=== PATIENT | male | born 1970 | race Hispanic/Latino ===

== ENCOUNTER 2021-09-18 07:00 | Emergency (ER) | payer OTHER ==
[2021-09-18 08:23] LABS: SARS-COV-2 RT PCR POSITIVE (NEGATIVE)
--- NOTE | 2021-09-18 08:27 | ER ---
Nurse's Notes [facility] Name: Boni Callejas Age: 50 yrs Sex: Male : 1970 Arrival Date: 09/18/2021 Time: 07:04 Bed Waiting Private MD: Diagnosis: Coronavirus infection, unspecified Presentation: 09/18 07:18 Chief complaint: Patient states: PT reports bodyaches, cough, fever, headache that bb started 2 days ago. [employer] work sent him to get a covid test. Coronavirus screen: Vaccine status: Patient reports being unvaccinated. cough unrelated to allergies, fever, muscle pain. Ebola Screen: Patient negative for fever greater than or equal to 101.5 degrees Fahrenheit, and additional compatible Ebola Virus Disease symptoms Patient denies exposure to infectious person. Patient denies travel to an Ebola-affected area in the 21 days before illness onset. No symptoms or risks identified at this time. Initial Sepsis Screen: Does the patient meet any 2 criteria? No. Patient's initial sepsis screen is negative. Does the patient have a suspected source of infection? No. Patient's initial sepsis screen is negative. Risk Assessment: Do you want to hurt yourself or someone else? Patient reports no desire to harm self or others. Onset of symptoms was September 16, 2021. 07:18 Method Of Arrival: Ambulatory bb 07:18 Acuity: SOO 4 bb Historical: - Allergies: 07:20 No Known Allergies; bb - Home Meds: 07:20 None [Active]; bb - PMHx: 07:20 None; bb - PSHx: 07:20 back surgery; bb - Immunization history:: Adult Immunizations not up to date, Client reports having NOT received the Covid vaccine. - Social history:: Smoking status: Patient denies any tobacco usage or history of. Vital Signs: 07:18 BP 128 / 86; Pulse 72; Resp 20; Temp 98.3; Pulse Ox 100% ; Weight 76.2 kg; Height 5 ft. bb 7 in. (170.18 cm); Pain 6/10; 07:18 Body Mass Index 26.31 (76.20 kg, 170.18 cm) bb ED Course: 07:04 Patient arrived in ED. as 07:07 Yeimi Prince FNP-C [facility]. kb 07:08 Vijay Rocha MD is Attending Physician. kb 07:20 Triage completed. bb 07:38 Hilary Mcallister, RN is Primary Nurse. iw Administered Medications: No medications were administered Outcome: 08:26 Discharge ordered by . kb 08:38 Patient left the ED. iw Signatures: Yeimi Prince, DIGITAL CONTENT SPECIALIST-C DIGITAL CONTENT SPECIALIST-Desiree Neves Brenda RN RN bb Hilary Mcallister, RN RN iw
--- NOTE | 2021-09-18 08:27 | EDPHYS ---
Physician Documentation [facility] Name: Boni Callejas Age: 50 yrs Sex: Male : 1970 Arrival Date: 09/18/2021 Time: 07:04 Bed Waiting Private MD: ED Physician Vijay Rocha HPI: 09/18 07:22 This 50 yrs old Male presents to ER via Ambulatory with complaints of Fever, kb body aches. 07:22 The patient or guardian reports cough, that is intermittent, flu symptoms, low-grade kb fever, myalgias. Onset: The symptoms/episode began/occurred 2 day(s) ago. Severity of symptoms: At their worst the symptoms were moderate, in the emergency department the symptoms have improved. Modifying factors: The symptoms are alleviated by nothing, the symptoms are aggravated by nothing. Associated signs and symptoms: Pertinent positives: fever, Pertinent negatives: chest pain, diarrhea, ear ache, nausea, rhinorrhea, sore throat, vomiting. The patient has not experienced similar symptoms in the past. The patient has not recently seen a physician. Historical: - Allergies: 07:20 No Known Allergies; bb - Home Meds: 07:20 None [Active]; bb - PMHx: 07:20 None; bb - PSHx: 07:20 back surgery; bb - Immunization history:: Adult Immunizations not up to date, Client reports having NOT received the Covid vaccine. - Social history:: Smoking status: Patient denies any tobacco usage or history of. ROS: 07:22 Abdomen/GI: Negative for abdominal pain, nausea, vomiting, diarrhea, and constipation. kb 07:22 Constitutional: Positive for body aches, chills, fatigue, fever, malaise. 07:22 Respiratory: Positive for cough, Negative for dyspnea on exertion, hemoptysis, orthopnea, pleurisy, shortness of breath, sputum production, wheezing. 07:22 Neuro: Positive for headache. 07:22 All other systems are negative. Exam: 07:22 Constitutional: This is a well developed, well nourished patient who is awake, alert, kb and in no acute distress. Head/Face: Normocephalic, atraumatic. ENT: Moist Mucous membranes Cardiovascular: Regular rate and rhythm with a normal S1 and S2. No gallops, murmurs, or rubs. No pulse deficits. Respiratory: Respirations even and unlabored. No increased work of breathing. Talking in full sentences Skin: Warm, dry with normal turgor. Normal color. MS/ Extremity: Pulses equal, no cyanosis. Neurovascular intact. Full, normal range of motion. Neuro: Awake and alert, GCS 15, oriented to person, place, time, and situation. Moves all extremities. Normal gait. Psych: Awake, alert, with orientation to person, place and time. Behavior, mood, and affect are within normal limits. Vital Signs: 07:18 BP 128 / 86; Pulse 72; Resp 20; Temp 98.3; Pulse Ox 100% ; Weight 76.2 kg; Height 5 ft. bb 7 in. (170.18 cm); Pain 6/10; 07:18 Body Mass Index 26.31 (76.20 kg, 170.18 cm) bb MDM: 07:23 Data reviewed: vital signs, nurses notes. Data interpreted: Pulse oximetry: on room air kb is 100 %. Interpretation: normal. 07:23 Patient medically screened. kb 08:25 Counseling: I had a detailed discussion with the patient and/or guardian regarding: the kb historical points, exam findings, and any diagnostic results supporting the discharge/admit diagnosis, lab results, the need for outpatient follow up, a family practitioner, to return to the emergency department if symptoms worsen or persist or if there are any questions or concerns that arise at home. 09/18 07:21 Order name: COVID-19/FLU A+B (Document "Date of Onset" if Symptomatic); Complete Time: bb 08:25 Administered Medications: No medications were administered Disposition Summary: 09/18/21 08:26 Discharge Ordered Location: Home kb Condition: Stable kb Diagnosis - Coronavirus infection, unspecified kb Followup: kb - With: Emergency Department - When: As needed - Reason: Worsening of condition Followup: kb - With: Private Physician - When: 2 - 3 days - Reason: Recheck today's complaints, Continuance of care, Re-evaluation by your physician Discharge Instructions: - Discharge Summary Sheet kb - Viral Respiratory Infection, [id number] kb - COVID-19 kb Forms: - Medication Reconciliation Form kb - Thank You Letter kb - Antibiotic Education kb - Prescription Opioid Use kb - Work release form iw Addendum: 09/19/2021 21:41 Co-signature as Attending Physician, Vijay Rocha MD. [facility] Signatures: Dispatcher [employer] Yeimi Mock, SASH ASSEMBLER-C SASH ASSEMBLER-Deanna Willis, RN RN Vijay Pierson MD MD [id number]
[2021-09-18 08:42] VITALS: BP 128/86; TEMP 98.3; O2SAT 100
== END 2021-09-18 08:38 | disposition home or self-care (01) ==
LOC: ER 07:00
DX: U07.1 COVID-19 (principal)
CPT/HCPCS: 0240U; 99281